=== PATIENT | male | born 1965 | race Caucasian/White ===

== ENCOUNTER 2018-11-09 10:26 | Emergency (ER) | payer OTHER ==
[2018-11-09] MEDS ORDERED: KETOROLAC TROMETHAMINE INJ/PF 30 MG/1 ML SDV IV ONE (11:15)
[2018-11-09] MEDS ORDERED: ONDANSETRON HCL INJ/PF 4 MG/2 ML SDV IV ONE (11:15)
[2018-11-09] MEDS ORDERED: NORMAL SALINE 1000 ML 1,000 ML IV ONE (11:15)
--- NOTE | 2018-11-09 11:19 | ER Document Report ---
ED General - General Chief Complaint: Flank Pain Stated Complaint: FLANK PAIN Time Seen by Provider: 11/09/18 10:58 Primary Care Provider: [facility] [Provider Group] - Follow up as needed JOSE KATZ MD [ACTIVE STAFF] - Follow up as needed Mode of Arrival: Ambulatory Information source: Patient Notes: This 53-year-old male presents emergency department with complaints of right- sided flank pain. Reports pain started this morning when he went from one job to the next up. Patient will works at [employer] and [employer]. Patient denies trauma. He denies other symptoms such as fever vomiting nausea diarrhea. Denies history of kidney stones. Reports he drinks a lot of cranberry juice and sodas. Patient reports pain comes and goes. TRAVEL OUTSIDE OF THE [place] IN LAST 30 DAYS: No - Related Data Allergies/Adverse Reactions: No Known Allergies Allergy (Unverified 11/09/18 10:27) Past Medical History - General Information source: Patient - Social History Smoking Status: Current Every Day Smoker Cigarette use (# per day): Yes Frequency of alcohol use: None Drug Abuse: None Occupation: [employer] Lives with: Family Family History: DM Patient has suicidal ideation: No Patient has homicidal ideation: No - Medical History Medical History: Negative Surgical Hx: Negative Review of Systems - Review of Systems Notes: Review HPI for review of systems., All other systems negative Physical Exam - Vital signs Vitals: Temp Pulse Resp BP Pulse Ox 98.3 F 100 26 H 155/91 H 98 11/09/18 10:33 11/09/18 10:33 11/09/18 10:33 11/09/18 10:33 11/09/18 10:33 - Notes Notes: PHYSICAL EXAMINATION: GENERAL: Well-appearing and in no acute distress HEAD: Atraumatic, normocephalic. EYES: Pupils equal round and reactive to light, extraocular movements intact, sclera anicteric, conjunctiva are normal. ENT: nares patent, oropharynx clear without exudates. Moist mucous membranes. NECK: Normal range of motion, supple without lymphadenopathy LUNGS: CTAB and equal. No wheezes rales or rhonchi. HEART: Regular rate and rhythm without murmurs ABDOMEN: Soft, no tenderness. No guarding, no rebound BACK: Right flank pain, no vertebral tenderness EXTREMITIES: Normal range of motion, no pitting edema. No cyanosis. NEUROLOGICAL: Cranial nerves grossly intact. Normal sensory/motor exams. PSYCH: Normal mood, normal affect. SKIN: Warm, Dry, normal turgor, no rashes or lesions noted Course - Re-evaluation Re-evalutation: 11/09/18 20:20 This 53-year-old male presents to the emergency department with sudden onset right flank pain. Reports he is never had this pain before. Labs unremarkable CT shows gallstone. Patient instructed on all results instructed follow-up with primary care provider for referral to surgeon. Patient was also given a prescription for antispasmodic. He verbalized understanding to all instructions. Abdomen/Pelvis CT 11/09/18 11:19 IMPRESSION: 1. No acute noncontrast CT findings to explain right flank pain. No evidence of urinary tract calculus or hydronephrosis. 2. Normal appendix. 3. Cholelithiasis. 4. Hepatic steatosis. 11/09/18 11:40 11/09/18 11:40 MCV 89 fl (80-97) 11/09/18 11:40 MCH 30.0 pg (27.0-33.4) 11/09/18 11:40 MCHC 33.7 g/dL (32.0-36.0) 11/09/18 11:40 RDW 14.1 % (11.5-14.0) H 11/09/18 11:40 Seg Neutrophils % 67.3 % (42-78) 11/09/18 11:40 Lymphocytes % 24.4 % (13-45) 11/09/18 11:40 Monocytes % 6.9 % (3-13) 11/09/18 11:40 Eosinophils % 0.7 % (0-6) 11/09/18 11:40 Basophils % 0.7 % (0-2) 11/09/18 11:40 Absolute Neutrophils 6.0 10^3/uL (1.7-8.2) 11/09/18 11:40 Absolute Lymphocytes 2.2 10^3/uL (0.5-4.7) 11/09/18 11:40 Absolute Monocytes 0.6 10^3/uL (0.1-1.4) 11/09/18 11:40 Absolute Eosinophils 0.1 10^3/uL (0.0-0.6) 11/09/18 11:40 Absolute Basophils 0.1 10^3/uL (0.0-0.2) 11/09/18 11:40 Chloride 105 mmol/L (98-107) 11/09/18 11:40 Carbon Dioxide 25 mmol/L (22-30) 11/09/18 11:40 Anion Gap 8 (5-19) 11/09/18 11:40 Est GFR ( Amer) > 60 (>60) 11/09/18 11:40 Est GFR (Non-Af Amer) > 60 (>60) 11/09/18 11:40 Glucose 127 mg/dL (75-110) H 11/09/18 11:40 Calcium 9.7 mg/dL (8.4-10.2) 11/09/18 11:40 Total Bilirubin 1.2 mg/dL (0.2-1.3) 11/09/18 11:40 AST 32 U/L (17-59) 11/09/18 11:40 Alkaline Phosphatase 87 U/L (38-126) 11/09/18 11:40 Total Protein 7.0 g/dL (6.3-8.2) 11/09/18 11:40 Albumin 4.5 g/dL (3.5-5.0) 11/09/18 11:40 Urine Color ANNEMARIE 11/09/18 12:08 Urine Appearance SLIGHTLY-CLOUDY 11/09/18 12:08 Urine pH 5.0 (5.0-9.0) 11/09/18 12:08 Ur Specific [place] 1.027 11/09/18 12:08 Urine Protein NEGATIVE mg/dL (NEGATIVE) 11/09/18 12:08 Urine Glucose (UA) NEGATIVE mg/dL (NEGATIVE) 11/09/18 12:08 Urine Ketones NEGATIVE mg/dL (NEGATIVE) 11/09/18 12:08 Urine Blood NEGATIVE (NEGATIVE) 11/09/18 12:08 Urine Nitrite NEGATIVE (NEGATIVE) 11/09/18 12:08 Ur Leukocyte Esterase NEGATIVE (NEGATIVE) 11/09/18 12:08 Urine WBC (Auto) 1 /HPF 11/09/18 12:08 Urine RBC (Auto) 2 /HPF 11/09/18 12:08 - Vital Signs Vital signs: Temp Pulse Resp BP Pulse Ox 97.9 F 73 18 151/94 H 94 11/09/18 13:53 11/09/18 13:53 11/09/18 13:53 11/09/18 13:53 11/09/18 13:53 - Laboratory Result Diagrams: 11/09/18 11:40 11/09/18 11:40 Laboratory results interpreted by me: 11/09/18 11/09/18 11/09/18 11:40 11:40 12:08 RDW 14.1 H Glucose 127 H Urine Urobilinogen 2.0 H - Diagnostic Test Radiology reviewed: Image reviewed, Reports reviewed Discharge - Discharge Clinical Impression: Flank pain Cholelithiases Qualifiers: Cholelithiasis location: gallbladder Cholecystitis presence: without cholecystitis Condition: Stable Disposition: HOME, SELF-CARE Instructions: Antispasmodics ([facility]), Flank Pain ([facility]), Gallbladder Disease ([facility]), Low-Fat Diet ([facility]), Toradol Injection ([facility]) Additional Instructions: *You have been evaluated for flank pain, gallstone *Take medication as prescribed Follow low-fat diet *Follow up with a primary care provider within one week for referral to surgeon as indicated *Return to ED for worsening condition, changes, needs *Return to ED if not better in 24 hours Prescriptions: Dicyclomine HCl [Bentyl 20 mg Tablet] 20 mg PO QID #40 tablet Forms: Return to Work Referrals: JOSE KATZ MD [ACTIVE STAFF] - [facility] as [facility] - Follow up as needed
[2018-11-09 12:03] LABS: ABSOLUTE BASOPHILS # (AUTO) 0.1 10^3/uL (0.0-0.2); ABSOLUTE EOSINOPHILS # (AUTO) 0.1 10^3/uL (0.0-0.6); ABSOLUTE LYMPHOCYTES (AUTO) 2.2 10^3/uL (0.5-4.7); ABSOLUTE MONOCYTES (AUTO) 0.6 10^3/uL (0.1-1.4); BASOPHILS % (AUTO) 0.7 % (0-2); EOSINOPHILS % (AUTO) 0.7 % (0-6); HEMATOCRIT 47.3 % (37.9-51.0); LYMPHOCYTES % (AUTO) 24.4 % (13-45); MEAN CORPUSCULAR HGB CONC 33.7 g/dL (32.0-36.0); MEAN CORPUSCULAR VOLUME 89 fl (80-97); MONOCYTES % (AUTO) 6.9 % (3-13); PLATELET COUNT 199 10^3/uL (150-450); RED BLOOD COUNT 5.33 10^6/uL (4.35-5.55); RED CELL DISTRIBUTION WIDTH 14.1 % (11.5-14.0); SEGMENTED NEUTROPHILS % (AUTO) 67.3 % (42-78); TOTAL CELLS COUNTED % (AUTO) 100 %; WHITE BLOOD COUNT 8.9 10^3/uL (4.0-10.5)
[2018-11-09 12:28] LABS: APPEARANCE,URINE SLIGHTLY-CLOUDY; BILIRUBIN,URINE NEGATIVE (NEGATIVE); COLOR,URINE AMBER; GLUCOSE, URINE NEGATIVE (NEGATIVE); KETONES,URINE NEGATIVE (NEGATIVE); LEUKOCYTE ESTERASE,URINE NEGATIVE (NEGATIVE); NITRITE,URINE NEGATIVE (NEGATIVE); PROTEIN,URINE NEGATIVE (NEGATIVE); URINE SPECIFIC GRAVITY 1.027
[2018-11-09 12:40] LABS: ALBUMIN 4.5 g/dL (3.5-5.0); ALKALINE PHOSPHATASE 87 U/L (38-126); ANION GAP 8 (5-19); ASPARTATE AMINO TRANSFERASE 32 U/L (17-59); BILIRUBIN,DIRECT 0.2 mg/dL (0.0-0.4); BILIRUBIN,TOTAL 1.2 mg/dL (0.2-1.3); BLOOD UREA NITROGEN 13 mg/dL (7-20); CALCIUM 9.7 mg/dL (8.4-10.2); CARBON DIOXIDE 25 mmol/L (22-30); CHLORIDE 105 mmol/L (98-107); GLUCOSE 127 mg/dL (75-110)
--- NOTE | 2018-11-09 12:47 | RADIOLOGY REPORT (SQ) ---
EXAM DESCRIPTION: CT ABD/PELVIS NO ORAL OR IV COMPLETED DATE/TIME: 11/09/2018 12:36 pm REASON FOR STUDY: right flank pain COMPARISON: None. TECHNIQUE: CT scan of the abdomen and pelvis performed without intravenous or oral contrast. Images reviewed with lung, soft tissue, and bone windows. Reconstructed coronal and sagittal MPR images revi ewed. All images stored on PACS. All CT scanners at this facility use dose modulation, iterative reconstruction, and/or weight based d osing when appropriate to reduce radiation dose to as low as reasonably achievable (ALARA). [facility]: Dose Right [facility]: CareDose [facility]: Dose Right [facility]: Teradose 4D [facility]: Smart payasUgym RADIATION DOSE: CT Rad equipment meets quality standard of care and radiation dose reduction techniq ues were employed. CTDIvol: 20.9 mGy. DLP: 1193 mGy-cm.mGy. LIMITATIONS: None. FINDINGS: LOWER CHEST: No significant findings. No nodules or infiltrates. NON-CONTRASTED LIVER, SPLEEN, ADRENALS: Evaluation limited by lack of IV contrast. Hepatic steatosis . No identified significant masses. PANCREAS: No masses. No peripancreatic inflammatory changes. GALLBLADDER: Small gallstone near the gallbladder neck. No inflammatory changes to suggest cholecyst itis. RIGHT KIDNEY AND URETER: No suspicious masses. Assessment limited by lack of IV contrast. No signif icant calcifications. No hydronephrosis or hydroureter. LEFT KIDNEY AND URETER: No suspicious masses. Assessment limited by lack of IV contrast. No signifi cant calcifications. No hydronephrosis or hydroureter. AORTA AND RETROPERITONEUM: No aneurysm. No retroperitoneal masses or adenopathy. BOWEL AND PERITONEAL CAVITY: No obvious masses or inflammatory changes. No free fluid. APPENDIX: Normal. PELVIS, BLADDER, AND ABDOMINAL WALL:No abnormal masses. No free fluid. Bladder normal. BONES: No significant findings. 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 OTHER: No other significant finding. IMPRESSION: 1. No acute noncontrast CT findings to explain right flank pain. No evidence of urinar y tract calculus or hydronephrosis. 2. Normal appendix. 3. Cholelithiasis. 4. Hepatic steatosis. COMMENT: Quality ID # [id number]: Final reports with documentation of one or more dose reduction techniques (e.g., Automated exposure control, adjustment of the mA and/or kV according to patient size, use of iterative reconstruction technique) TECHNICAL DOCUMENTATION: JOB ID: [id number] [email or web address]- All Rights Reserved Reading location - IP/workstation name: [email or web address]
[2018-11-09 13:54] VITALS: BP 151/94
== END 2018-11-09 13:49 | disposition home or self-care (01) ==
LOC: ER 10:26
DX: K80.20 Calculus of gallbladder without cholecystitis without obstruction (principal); R10.9 Unspecified abdominal pain; F17.210 Nicotine dependence, cigarettes, uncomplicated
CPT/HCPCS: 36415; 85025; 80053; 81001; 74176; J1885; J2405; J7030; 96361; 96374; 96375; 99284

== ENCOUNTER 2018-11-10 22:27 | Emergency (ER) | payer OTHER ==
[2018-11-11] MEDS ORDERED: KETOROLAC TROMETHAMINE INJ/PF 30 MG/1 ML SDV IV ONE (00:14)
[2018-11-11] MEDS ORDERED: LIDOCAINE 5% (700 MG) TRANSDERMAL ADH..PATCH TP ONE (00:14)
--- NOTE | 2018-11-11 00:16 | ER Document Report ---
ED Medical Screen (RME) - General Chief Complaint: Flank Pain Stated Complaint: FLANK PAIN Time Seen by Provider: 11/11/18 00:12 Mode of Arrival: Ambulatory Information source: Patient Notes: Patient presents complaining of right lower back and side pain that started yesterday. Patient states he was seen here in the emergency department yesterday for this complaint and was diagnosed with gallstones. Patient denies any nausea vomiting fever or urinary symptoms. Patient did have a CT scan performed yesterday that did not show any ureteral calculus. Patient states that pain is affecting his ability to sleep. I have greeted and performed a rapid initial assessment of this patient. A comprehensive ED assessment and evaluation of the patient, analysis of test results and completion of the medical decision making process will be conducted by additional ED providers. TRAVEL OUTSIDE OF THE [place] IN LAST 30 DAYS: No - Related Data Allergies/Adverse Reactions: No Known Allergies Allergy (Unverified 11/09/18 10:27) Past Medical History Renal/ Medical History: Denies: Hx Peritoneal Dialysis Physical Exam - Vital signs Vitals: Temp Pulse Resp BP Pulse Ox 98.4 F 85 20 151/82 H 93 11/10/18 23:04 11/10/18 23:04 11/10/18 23:04 11/10/18 23:04 11/10/18 23:04 - General Notes: Patient with pain to right lower lumbar and lateral side area. No right upper quadrant tenderness Course - Vital Signs Vital signs: Temp Pulse Resp BP Pulse Ox 98.4 F 85 20 151/82 H 93 11/10/18 23:04 11/10/18 23:04 11/10/18 23:04 11/10/18 23:04 11/10/18 23:04
[2018-11-11 01:20] LABS: ABSOLUTE BASOPHILS # (AUTO) 0.1 10^3/uL (0.0-0.2); ABSOLUTE EOSINOPHILS # (AUTO) 0.1 10^3/uL (0.0-0.6); ABSOLUTE LYMPHOCYTES (AUTO) 2.5 10^3/uL (0.5-4.7); BASOPHILS % (AUTO) 0.7 % (0-2); EOSINOPHILS % (AUTO) 0.9 % (0-6); HEMATOCRIT 47.5 % (37.9-51.0); HEMOGLOBIN 15.8 g/dL (13.5-17.0); LYMPHOCYTES % (AUTO) 21.1 % (13-45); MEAN CORPUSCULAR HEMOGLOBIN 29.8 pg (27.0-33.4); MEAN CORPUSCULAR HGB CONC 33.3 g/dL (32.0-36.0); MEAN CORPUSCULAR VOLUME 90 fl (80-97); MONOCYTES % (AUTO) 8.9 % (3-13); PLATELET COUNT 193 10^3/uL (150-450); RED BLOOD COUNT 5.31 10^6/uL (4.35-5.55); RED CELL DISTRIBUTION WIDTH 14.2 % (11.5-14.0); SEGMENTED NEUTROPHILS % (AUTO) 68.4 % (42-78); TOTAL CELLS COUNTED % (AUTO) 100 %; WHITE BLOOD COUNT 11.7 10^3/uL (4.0-10.5)
[2018-11-11 01:29] LABS: APPEARANCE,URINE CLEAR; BILIRUBIN,URINE NEGATIVE (NEGATIVE); COLOR,URINE AMBER; GLUCOSE, URINE NEGATIVE (NEGATIVE); KETONES,URINE TRACE mg/dL (NEGATIVE); LEUKOCYTE ESTERASE,URINE NEGATIVE (NEGATIVE); NITRITE,URINE NEGATIVE (NEGATIVE); PROTEIN,URINE NEGATIVE (NEGATIVE); URINE SPECIFIC GRAVITY 1.025; UROBILINOGEN,URINE NEGATIVE mg/dL (<2.0)
[2018-11-11 01:39] LABS: ALBUMIN 4.3 g/dL (3.5-5.0); ALKALINE PHOSPHATASE 83 U/L (38-126); ANION GAP 9 (5-19); ASPARTATE AMINO TRANSFERASE 24 U/L (17-59); BILIRUBIN,DIRECT 0.2 mg/dL (0.0-0.4); BILIRUBIN,TOTAL 1.2 mg/dL (0.2-1.3); BLOOD UREA NITROGEN 10 mg/dL (7-20); CALCIUM 9.7 mg/dL (8.4-10.2); CARBON DIOXIDE 26 mmol/L (22-30); CHLORIDE 104 mmol/L (98-107); GLUCOSE 158 mg/dL (75-110); POTASSIUM 4.1 mmol/L (3.6-5.0); TOTAL PROTEIN 7.1 g/dL (6.3-8.2)
[2018-11-11 01:47] LABS: ADD MANUAL MICROSCOPIC YES
[2018-11-11 01:48] LABS: BACTERIA,URINE TRACE /HPF; WBC,URINE 0-1 /HPF
[2018-11-11 01:50] LABS: RBC,URINE 0-1 /HPF
--- NOTE | 2018-11-11 02:41 | RADIOLOGY REPORT (SQ) ---
CLINICAL HISTORY: R side pain, Hx cholelithiasis COMPARISON: None. TECHNIQUE: US ABDOMEN LIMITED on 11/11/2018 12:14 AM CDT FINDINGS: Liver is enlarged and fatty in attenuation. Portal vein is not visualized. Gallbladder is normally distended with sludge there is no wall thickening. Gallstone is not seen. Right kidney measures 11.7 cm without hydronephrosis. Common bile duct is not seen. IMPRESSION: Limited study. Gallbladder sludge without definite gallstone or pericholecystic fluid.
--- NOTE | 2018-11-11 03:15 | ER Document Report ---
ED General - General Chief Complaint: Flank Pain Stated Complaint: FLANK PAIN Time Seen by Provider: 11/11/18 00:12 Mode of Arrival: Ambulatory Notes: 53-year-old male presents emergency department complaining that his right low back pain has been going on since Wednesday. Patient states that on Wednesday was diagnosed with gallstones and prescribed an antispasmodic that did not change his pain. Patient returned here because he try to go to work but he was still having significant pain. Denies any radiation of the pain, denies any numbness or tingling, denies any bowel or bladder dysfunction. Denies any alex ge with food, denies any nausea or vomiting, fevers or chills or dysuria. TRAVEL OUTSIDE OF THE [place] IN LAST 30 DAYS: No - Related Data Allergies/Adverse Reactions: No Known Allergies Allergy (Unverified 11/09/18 10:27) Past Medical History - General Information source: Patient - Social History Smoking Status: Current Every Day Smoker Chew tobacco use (# tins/day): No Frequency of alcohol use: Rare Drug Abuse: None Family History: DM Patient has suicidal ideation: No Patient has homicidal ideation: No Endocrine Medical History: Reports: Hx Diabetes Mellitus Type 2 Renal/ Medical History: Denies: Hx Peritoneal Dialysis Psychiatric Medical History: Reports: Hx Bipolar Disorder - Reports bipolar depression Review of Systems - Review of Systems Constitutional: No symptoms reported Gastrointestinal: No symptoms reported Musculoskeletal: See HPI -: Yes All other systems reviewed and negative Physical Exam - Vital signs Vitals: Temp Pulse Resp BP Pulse Ox 98.4 F 85 20 151/82 H 93 11/10/18 23:04 11/10/18 23:04 11/10/18 23:04 11/10/18 23:04 11/10/18 23:04 Interpretation: Hypertensive - Notes Notes: GENERAL: Alert, interacts well. No acute distress. HEAD: Normocephalic, atraumatic EYES: Pupils equal, round and reactive to light, extraocular movements intact. ENT: Oral mucosa moist, tongue midline. NECK: Full range of motion, supple, trachea midline. LUNGS: Clear to auscultation bilaterally, no wheezes, rales or rhonchi, no respiratory distress. HEART: Regular rate and rhythm, no murmurs, gallops, rubs. ABDOMEN: Soft, nontender, nondistended, bowel sounds present in all 4 quadrants. EXTREMITIES: Moves all 4 extremities spontaneously, no edema. No cyanosis. BACK: Lidoderm patch on the right low back during my examination, minimal tenderness to palpation in this area, small amount of muscle spasm in the paraspinal musculature. No midline bony tenderness to palpation, no step-offs or deformities. NEUROLOGICAL: Alert and oriented x3, normal speech. Walks without difficulty. 5 out of 5 muscle strength in all 4 extremities, sensation intact. PSYCH: Normal mood, normal affect. SKIN: Warm, Dry, normal turgor, no rashes or lesions noted. Course - Re-evaluation Re-evalutation: 11/11/18 03:09 CBC shows leukocytosis of 11.7, CMP shows elevated glucose at 158, patient knows he is a diabetic but cannot afford his medications. Urinalysis shows trace ketones but no sign of infection. Abdominal ultrasound does not show any signs of cholelithiasis or infection, the gallstone previously seen has disappeared. There is no evidence of ductal dilation. Patient's symptoms resolved with the Lidoderm patch. Symptoms do not change with food. Distribution is not consistent with biliary colic. Discussed with patient that I feel this is likely muscle spasm versus strain, patient will be treated with Lidoderm patches and muscle relaxers. Discharged home. Advised him to stop taking the Bentyl and that he does not need to follow-up with a surgeon unless he develops nausea, upper abdominal or upper back pain, fevers, vomiting or pain that worsens with food. Patient is agreeable to this plan. Discharged home. - Vital Signs Vital signs: Temp Pulse Resp BP Pulse Ox 98.3 F 78 20 125/87 H 99 11/11/18 02:41 11/11/18 02:41 11/11/18 02:41 11/11/18 02:41 11/11/18 02:41 - Laboratory Result Diagrams: 11/11/18 01:05 11/11/18 01:05 Laboratory results interpreted by me: 11/11/18 11/11/18 11/11/18 01:05 01:05 01:05 WBC 11.7 H RDW 14.2 H Glucose 158 H Urine Ketones TRACE H Discharge - Discharge Clinical Impression: Low back pain Qualifiers: Chronicity: acute Back pain laterality: right Sciatica presence: without sciatica Qualified Code(s): M54.5 - Low back pain Condition: Stable Disposition: HOME, SELF-CARE Additional Instructions: Low Back Pain Three out of every four people will have an episode of disabling back pain during their lifetime. Most commonly the pain is due to straining of the muscles and ligaments in the low back. Usual treatment includes: (1) Rest on a firm surface. Avoid lying on your stomach. (2) Ice pack the painful area. After a few days, gentle heat may be used intermittently to relax the area, or ice packs can be continued. (3) Medication may be needed -- muscle relaxers and antiinflammatory medicines are commonly used. (4) As the back improves, exercises are prescribed to strengthen the back and abdominal muscles. Your doctor will advise you on the proper care for your back at each stage in your recovery. You may be better in a few days -- or healing may take several weeks. If new symptoms of a "herniated disc" (radiation of pain, numbness, or tingling down the back of the leg or weakness in the leg) occur, you should be re-examined. Further testing may be necessary. You may stop taking the Bentyl. Please start taking the Robaxin. Your ultrasound did show signs of sludge in your gallbladder. This is not currently causing you a problem but it could cause trouble in the future. If you develop nausea, vomiting, fevers or pain higher in your back or in her abdomen please return to the emergency department. Prescriptions: Methocarbamol [Robaxin 750 mg Tablet] 750 mg PO ASDIR PRN #40 tablet PRN Reason: Forms: Return to Work
[2018-11-11 04:00] VITALS: BP 144/84
== END 2018-11-11 04:11 | disposition home or self-care (01) ==
LOC: ER 22:27
DX: M54.5 Low back pain (principal); R10.9 Unspecified abdominal pain; F17.200 Nicotine dependence, unspecified, uncomplicated; E11.9 Type 2 diabetes mellitus without complications
CPT/HCPCS: 99284; 96374; 36415; 83690; 85025; 80053; 81001; 76705; J1885